=== PATIENT | male | born 2000 | race Caucasian/White ===

== ENCOUNTER 2020-07-27 07:16 | Emergency (ER) | payer OTHER ==
[~2020-07-27 07:16] MED LIST: CYCLOBENZAPRINE10 MG PO; IBUPROFEN600 MG PO; ZOFRAN4 MG PO
== END 2020-07-27 08:25 | disposition home or self-care (01) ==
LOC: ER1 07:16
DX: S56.812A Strain of other muscles, fascia and tendons at forearm level, left arm, initial encounter (principal); X50.9XXA Other and unspecified overexertion or strenuous movements or postures, initial encounter
CPT/HCPCS: 73090; 99283

== ENCOUNTER 2021-04-01 09:51 | Emergency (ER) | payer MEDICAID ==
[2021-04-01] MEDS ORDERED: BACTROBAN OINT22 GM EXT (14:23)
[2021-04-01] MEDS ORDERED: IBUPROFEN600 MG PO (14:23)
== END 2021-04-01 14:42 | disposition home or self-care (01) ==
LOC: ER1 09:51
DX: S90.31XA Contusion of right foot, initial encounter (principal); F17.200 Nicotine dependence, unspecified, uncomplicated; W20.8XXA Other cause of strike by thrown, projected or falling object, initial encounter; Y92.69 Other specified industrial and construction area as the place of occurrence of the external cause; Y99.0 Civilian activity done for income or pay
CPT/HCPCS: 73630; 90471; 90715; 99283

== ENCOUNTER → 2021-04-16 | Outpatient (CLI) | payer OTHER ==
[~2021-04-16] MED LIST changes: +BACTROBAN OINT22 GM EXT
== END ==
LOC: RAD 17:24
DX: J20.9 Acute bronchitis, unspecified (principal); Z03.818 Encounter for observation for suspected exposure to other biological agents ruled out; F17.290 Nicotine dependence, other tobacco product, uncomplicated; R91.8 Other nonspecific abnormal finding of lung field
CPT/HCPCS: 71046

== ENCOUNTER → 2021-04-19 | Outpatient (CLI) | payer OTHER | LOC: KOH-I 16:07 | DX: Z20.822 Contact with and (suspected) exposure to COVID-19 (principal) | CPT/HCPCS: 71046 ==

== ENCOUNTER 2021-12-19 13:33 | Emergency (ER) | payer OTHER ==
[2021-12-19 15:19] LABS: HEMOGLOBIN 17.1 gm/dl (14.0-17.5); RED BLOOD COUNT 5.73 M/UL (4.20-5.50); WHITE BLOOD COUNT 15.6 K/UL (4.5-11.0)
[2021-12-19 15:43] LABS: BUN/CREATININE RATIO 20 (0-10)
[2021-12-19] MEDS ORDERED: PREDNISONE 20 M20 MG GT (17:03)
[2021-12-19] MEDS ORDERED: ADVAIR 250-501 EACH INH (17:03)
== END 2021-12-19 17:41 | disposition home or self-care (01) ==
LOC: ER1 13:33
PROVIDERS: Physician Assistant
DX: J45.901 Unspecified asthma with (acute) exacerbation (principal); F17.210 Nicotine dependence, cigarettes, uncomplicated; Z20.822 Contact with and (suspected) exposure to COVID-19
CPT/HCPCS: 0240U; 71045; 80053; 82550; 82553; 84484; 85025; 93005; 94664; 96374; 96375; 99285; J1100; J1885